=== PATIENT | female | born 1960 | race Caucasian/White ===

== ENCOUNTER 2019-09-09 15:30 | Outpatient (CLI) | payer OTHER, SELFPAY ==
--- NOTE | ~2019-09-09 | MM_ITS ---
EXAMINATION: MM screening [facility] [place] HISTORY: Screening mammogram TECHNIQUE: Craniocaudal and mediolateral oblique 3-D tomosynthesis images were obtained and synthetic 2-D images were generated. CAD analysis was submitted and interpreted. COMPARISON: Comparison to multiple prior studies sequentially, with oldest reviewed study dated 06/09. BREAST PARENCHYMAL COMPOSITION: There are scattered areas of fibroglandular density. FINDINGS: There is no evidence of suspicious mass, calcification, or architectural distortion to sugg est malignancy in either breast. There has been no suspicious interval change. IMPRESSION: 1. No mammographic evidence of malignancy. 2. Recommend routine screening mammography in one year. BI-RADS Category 1: Negative Reviewed, dictated and finalized at location A.
== END 2019-09-09 15:31 | disposition home or self-care (01) ==
LOC: ANHIMG 15:33
PROVIDERS: PCP Internal Medicine Gastroenterology; Visit Provider Obstetrics & Gynecology
DX: Z12.31 Encounter for screening mammogram for malignant neoplasm of breast (principal)
CPT/HCPCS: 77063; 77067

== ENCOUNTER 2020-10-31 10:18 | Emergency (ER) | payer OTHER, SELFPAY ==
[2020-10-31 10:36] VITALS: BP 132/79; PULSE 83; RESP 12; TEMP 36.4; O2SAT 99
[2020-10-31 10:40] VITALS: BP 132/79; PULSE 83; RESP 12; TEMP 36.4; O2SAT 99
--- NOTE | 2020-10-31 11:09 | ED.URI ---
HPI - URI/Sore Throat General Chief Complaint: Upper Respiratory Infection Stated Complaint: NEEDS NEGATIVE COVID TEST Time Seen by Provider: 10/31/20 11:01 Source: patient and RN notes reviewed Mode of arrival: ambulatory Limitations: no limitations History of Present Illness HPI Narrative: Patient presents today after finishing her 14-day quarantine for COVID-19. She is requesting a Covid test so she can get her vaccine. She was told by Marilyn that she needs a negative Covid test so she can get her COVID-19 vaccine. Related Data Home Medications Medication Instructions Recorded Confirmed atorvastatin 10/31/20 clonazepam 10/31/20 ergocalciferol (vitamin D2) 10/31/20 [Vitamin D2] losartan 10/31/20 omeprazole 10/31/20 Allergies Allergy/AdvReac Type Severity Reaction Status Date / Time adhesive Allergy Unknown Rash Verified 10/31/20 10:39 Review of Systems Review of Systems: CONSTITUTIONAL: Denies body aches, fever, chills, or sweats. EYES: Denies visual changes, redness, or discharge. ENT: Denies rhinorrhea, congestion, sore throat, or otalgia. Sick taste in the mouth. CARDIOVASCULAR: Denies chest pain, palpitations, or edema. RESPIRATORY: Denies cough or dyspnea. GASTROINTESTINAL: Denies abdominal pain, nausea, vomiting, or diarrhea. GENITOURINARY: Denies dysuria or hematuria. SKIN: Denies rash, itching, or wounds. MUSCULOSKELETAL: Denies back pain, joint pain, or myalgia. NEUROLOGIC: Denies headache, numbness, tingling, or weakness. PSYCH: Denies depression or anxiety. PMFSH Comments At time of signature, I have reviewed and agree with nursing past medical, surgical, social and family history unless otherwise noted. Please see nursing chart for further information. There is no relevant family history pertinent to the presenting complaint Exam Narrative: GENERAL: Well-appearing, well-nourished, and in no acute distress. HEAD: Normocephalic, atraumatic. EYES: EOMI. No redness or drainage. Conjunctivae normal. ENT: Mucous membranes pink and moist. Nares clear. No rhinorrhea. TMs normal bilaterally. Throat normal. Uvula midline. NECK: Normal AROM. Supple. No lymphadenopathy. CHEST: No respiratory distress. Clear to auscultation. HEART: Regular rate and rhythm. No murmur appreciated. Normal peripheral pulses. EXTREMITIES: Normal range of motion. No edema. SKIN: Warm, dry, no rash. Capillary refill normal. Normal skin turgor. NEURO: No focal deficits. Alert and oriented x3. Gait steady. PSYCH: Normal affect. No signs of depression or anxiety. Course Vital Signs Vital signs: Vital Signs Temperature 97.6 F 10/31/20 10:36 Pulse Rate 83 10/31/20 10:36 Respiratory Rate 12 10/31/20 10:36 Blood Pressure 132/79 10/31/20 10:36 Pulse Oximetry 99 10/31/20 10:36 Temperature 97.6 F 10/31/20 10:40 Pulse Rate 83 10/31/20 10:40 Respiratory Rate 12 10/31/20 10:40 Blood Pressure 132/79 10/31/20 10:40 Pulse Oximetry 99 10/31/20 10:40 Reviewed. Pt has been instructed to follow up with her PCP regarding her elevated blood pressure today. MDM - URI/Sore Throat Differential Diagnosis Differential diagnosis: Likely other (COVID-19) Lab Data Attestation: I reviewed the patient's lab results. Lab results narrative: Rapid Covid test positive Critical Care Time Critical Care Time Critical Care Time: No Discharge Plan Discharge Clinical Impression: SARS-CoV-2 positive Patient Disposition: Home, Self-Care Condition: Stable Additional Instructions: Your rapid COVID-19 test remains positive. [facility] for vaccine clinics that may not require a negative test for you to receive a vaccine. Your blood pressure was elevated above 120/80 today at Urgent Care. This puts you above the threshold for follow up. Please schedule a followup visit with your personal physician as soon as possible, for further evaluation and
== END 2020-10-31 11:28 | disposition home or self-care (01) ==
PROVIDERS: Emergency Provider Nurse Practitioner; PCP Internal Medicine Gastroenterology
DX: U07.1 COVID-19 (principal); I10 Essential (primary) hypertension; K21.9 Gastro-esophageal reflux disease without esophagitis
CPT/HCPCS: 87426; 99213; C9803; G0463